=== PATIENT | male | born 1970 | race Caucasian/White ===

== ENCOUNTER 2021-02-05 18:39 | Emergency (ER) | payer MEDICAID ==
[~2021-02-05] VITALS: Ht 170.2 cm; Wt 120.0 kg
[2021-02-05] MEDS ORDERED: AMOX-424 MT (23:34)
[2021-02-05] MEDS ORDERED: TETANUS, DIPHTHERIA, PERTUSSIS VAC/PF 0.5ML (>10YR OLD) IM ONE (23:45)
[2021-02-05] MEDS ORDERED: BACITRACIN ZINC OINT UDPKT TOP ONE (23:45)
[2021-02-06 00:18] VITALS: BP 135/67
== END 2021-02-06 00:20 | disposition home or self-care (01) ==
LOC: ER 18:39
DX: S51.852A Open bite of left forearm, initial encounter (principal); W54.0XXA Bitten by dog, initial encounter; Y93.89 Activity, other specified; Y92.488 Other paved roadways as the place of occurrence of the external cause
CPT/HCPCS: 90471; 90715; 99283